=== PATIENT | female | born 1935 | race Caucasian/White ===

== ENCOUNTER 2017-08-06 14:34 | Observation (INO) | payer MEDICARE, BC ==
[~2017-08-06] VITALS: Ht 152.4 cm; Wt 68.2 kg
[~2017-08-06 14:34] MED LIST: CITRTAB7 PO; CLON0.5T PO; COUM2TAB PO; CYMB30CA PO; EXTR500C PO; MULTCAP2 PO; OMEP20TA39 PO; PRAV40TA PO
[2017-08-06 14:36] VITALS: BP 140/82; PULSE 101; RESP 18; TEMP 99.3; O2SAT 94
--- NOTE | 2017-08-06 15:30 | RADRPT ---
EXAM DATE/TIME: 08/06/2017 15:22 [facility] COMPARISON: CT BRAIN W/O CONTRAST, November 27, 2015, 7:51. INDICATIONS : Episode of confusion, visual disturbances. RADIATION DOSE: 34.66 CTDIvol (mGy) MEDICAL HISTORY : Endometrial cancer SURGICAL HISTORY : Hysterectomy. ENCOUNTER: Initial ACUITY: 1 day PAIN SCALE: 0/10 LOCATION: cranial TECHNIQUE: Multiple contiguous axial images were obtained of the head. Using automated exposure control and adj ustment of the mA and/or kV according to patient size, radiation dose was kept as low as reasonably a chievable to obtain optimal diagnostic quality images. DICOM format image data is available electro nically for review and comparison. FINDINGS: CEREBRUM: The ventricles are normal for age. No evidence of midline shift, mass lesion, hemorrhage or acute in farction. No extra-axial fluid collections are seen. POSTERIOR FOSSA: The cerebellum and brainstem are intact. The 4th ventricle is midline. The cerebellopontine angle i s unremarkable. EXTRACRANIAL: The visualized portion of the orbits is intact. SKULL: The calvaria is intact. No evidence of skull fracture. CONCLUSION: No acute intracranial abnormality. Abel Bajwa MD on August 06, 2017 at 15:26 Board Certified Radiologist. This report was verified electronically.
[2017-08-06 15:58] LABS: AUTOMATED NEUTROPHIL # 5.6 TH/MM3 (1.8-7.7); BASOPHIL # 0.1 TH/MM3 (0-0.2); BASOPHIL % 0.7 % (0.0-2.0); EOSINOPHIL # 0.1 TH/MM3 (0-0.4); EOSINOPHIL % 1.2 % (0.0-4.0); HEMATOCRIT 41.3 % (35.0-46.0); LYMPH % 16.2 % (9.0-44.0); LYMPHOCYTE # 1.3 TH/MM3 (1.0-4.8); MEAN CELL VOLUME 88.4 FL (80.0-100.0); MEAN PLATELET VOLUME 7.7 FL (7.0-11.0); MONO % 10.3 % (0.0-8.0); MONOCYTE # 0.8 TH/MM3 (0-0.9); NEUT % 71.6 % (16.0-70.0); PLATELET COUNT 229 TH/MM3 (150-450); RED BLOOD COUNT 4.67 MIL/MM3 (4.00-5.30); RED CELL DISTRIBUTION WIDTH 13.7 % (11.6-17.2); WHITE BLOOD COUNT 7.8 TH/MM3 (4.0-11.0)
[2017-08-06 16:05] LABS: INTERNATIONAL NORMALIZED RATIO 1.6 RATIO; PROTHROMBIN TIME - PATIENT 16.5 SEC (9.8-11.6)
[2017-08-06 16:13] LABS: ALBUMIN 3.5 GM/DL (3.4-5.0); ALT (GPT) 25 U/L (10-53); AST (GOT) 20 U/L (15-37); BICARBONATE 29.2 MEQ/L (21.0-32.0); BLOOD UREA NITROGEN 17 MG/DL (7-18); CALCIUM 8.6 MG/DL (8.5-10.1); CHLORIDE 104 MEQ/L (98-107); CREATININE 0.75 MG/DL (0.50-1.00); GLOMERULAR FILTRATION RATE 74 ML/MIN (>89); GLUCOSE,RANDOM 99 MG/DL (74-106); SODIUM (NA) 140 MEQ/L (136-145)
[2017-08-06 16:20] LABS: ALKALINE PHOSPHATASE 74 U/L (45-117); TOTAL BILIRUBIN ADULT 0.3 MG/DL (0.2-1.0); TROPONIN I LESS THAN 0.02 NG/ML (0.02-0.05)
[2017-08-06 16:41] LABS: BACTERIA, URINE OCC /hpf; BILIRUBIN, URINE NEG (NEG); BLOOD, URINE TRACE (NEG); GLUCOSE,URINE NEG (NEG); KETONE, URINE NEG (NEG); NITRITE,URINE NEG (NEG); RENAL EPITHELIAL CELLS 1 /hpf; SQUAMOUS EPITHELIAL CELL URINE 4 /hpf (0-5); URINE COLOR YELLOW (YELLW/STRAW); URINE LEUKOCYTE ESTERASE LARGE (NEG)
[2017-08-06] MEDS ORDERED: PRAV20TA2 PO (19:33)
[2017-08-06] MEDS ORDERED: CLON0.5T PO (19:33)
[2017-08-06] MEDS ORDERED: DULO1CAP2 PO (19:33)
[2017-08-06] MEDS ORDERED: ACET500L PO (19:33)
[2017-08-06] MEDS ORDERED: WARF4TAB51 PO (19:33)
[2017-08-06] MEDS ORDERED: MULT1TAB39 (19:33)
[2017-08-06] MEDS ORDERED: GADODIAMIDE PF 287 MG/ML 5 ML VIAL (for RAD MRI) IVCONTRAST ONE (20:30)
[2017-08-06 20:32] VITALS: BP 147/78; PULSE 78; RESP 18; O2SAT 99
--- NOTE | 2017-08-06 20:34 | PD ---
HPI Chief Complaint: Neuro Symptoms/ Deficits Time Seen by Provider: 19:22 Travel History International Travel<30 days: No Contact w/Intl Traveler<30days: No Traveled to known affect area: No History of Present Illness HPI 81-year-old female that presents to the ED for evaluation of possible TIA. Patient has a history of TIAs in the past. Per patient she last had one in 2015. Per patient she's noted as well as daughter that she's been having episodes of confusion as well as trouble speaking and coming up with words to come and go. She's had a couple of episodes after Christmases but they noted them more yesterday and today when she apparently tried to text her daughter and she couldn't finish the text as well as today when she was playing " solitary "on her phone and she couldn't figure out how to play it at that she plays this daily and at the same time could not speak with his daughter. She does report that on June the. She had an episode which she was reading a book and on one of her eye she could not read the letter and only part of it. Per patient she is compliant with her Coumadin which she is being prescribed to her doctor. She does have a history of high blood pressure. She denies any history of diabetes. No chest pain or shortness of breath. No urinary or bowel movement issues. She has allergies to quinine. She follows with Dr. Hernandez for neurology but she couldn't get to talk to him on the phone so they came here. 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 FROM DEHYDRATION OR ANXIETY ) Psychiatric: Yes (ANXIETY ) Reproductive: Yes (HX OF ENDOMETRIAL CANCER) Respiratory: No Radiation Therapy: Yes Thyroid Disease: No Tetanus Vaccination: > 5 Years Menopausal: No Tubal Ligation: Yes (1971) Past Surgical History Abdominal Surgery: Yes (CYST ON LIVER DRAINED; WHIT ) AICD: No Appendectomy: Yes (1971) Body Medical Devices: 1 SURGICAL WIRE SUTURE - JAW Cardiac Surgery: No Section: Yes (1971) Ear Surgery: No Endocrine Surgery: No Eye Surgery: Yes (CATARACT RIGHT 1996) Genitourinary Surgery: No Gynecologic Surgery: Yes (TOTAL HYSTERECTOMY; C SECTION ) Hysterectomy: Yes (2003) Joint Replacement: No Oral Surgery: Yes (JAW SURGERY-SEVERE UNDERBITE) Pacemaker: No Thoracic Surgery: No Other Surgery: Yes (JAW SURGERIES IN 1960S) Social History Alcohol Use: No Tobacco Use: No Substance Use: No Allergies-Medications (Allergen,Severity, Reaction): Coded Allergies: quinine (Unverified Allergy, Severe, 03/11/17) FACIAL BUTTERFLY RASH Reported Meds & Prescriptions Reported Meds & Active Scripts Active Reported Warfarin 2 Mg Tab 2 Mg PO DAILY Multiple Vitamin/Minerals (Multiple Vitamins W/ Minerals) 1 Tab Tab Clonazepam 0.5 Mg Tab 0.5 Mg PO HS Pravastatin 20 Mg Tab 20 Mg PO DAILY Duloxetine DR (Duloxetine HCl) 30 Mg Capdr 30 Mg PO DAILY Acetaminophen Extra Strength Liq (Acetaminophen) 500 Mg/15 Ml Soln 500 Mg PO Q4- 6H PRN Review of Systems Except as stated in HPI: all other systems reviewed are Neg Physical Exam Narrative GENERAL: SKIN: Warm and dry. HEAD: Atraumatic. Normocephalic. EYES: Pupils equal and round. No scleral icterus. No injection or drainage. ENT: No nasal bleeding or discharge. Mucous membranes pink and moist. Tongue is midline. No uvula deviation. NECK: Trachea midline. No JVD. CARDIOVASCULAR: Regular rate and rhythm. No murmurs, S3, S4. RESPIRATORY: No accessory muscle use. Clear to auscultation. Breath sounds equal bilaterally. GASTROINTESTINAL: Abdomen soft, non-tender, nondistended. Hepatic and splenic margins not palpable. MUSCULOSKELETAL: Extremities without clubbing, cyanosis, or edema. No obvious deformities. Full range of motion of the upper and lower extremities bilaterally. 2+ pulses bilaterally. Romberg is negative. pronator test is negative. NEUROLOGICAL: Awake and alert. No obvious cranial nerve deficits. Motor grossly within normal limits. Five out of 5 muscle strength in the arms and legs. Normal speech. PSYCHIATRIC: Appropriate mood and affect; insight and judgment normal. Data Data Last Documented VS Vital Signs Date Time Temp Pulse Resp B/P (MAP) Pulse Ox O2 Delivery O2 Flow Rate FiO2 08/06/17 19:21 96 Room Air 08/06/17 14:36 99.3 101 18 140/82 (101) Orders Orders Electrocardiogram (08/06/17 15:00) Prothrombin Time / Inr (Pt) (08/06/17 15:00) Act Partial Throm Time (Ptt) (08/06/17 15:00) Complete Blood Count With Diff (08/06/17 15:00) Comprehensive Metabolic Panel (08/06/17 15:00) Troponin I (08/06/17 15:00) Urinalysis - C+S If Indicated (08/06/17 15:00) Ct Brain W/O Iv Contrast(Rout) (08/06/17 15:00) Urine Culture (08/06/17 15:35) Admit Order (Ed Use Only) (08/06/17 20:28) Labs Laboratory Tests Test 08/06/17 15:35 White Blood Count 7.8 TH/MM3 Red Blood Count 4.67 MIL/MM3 Hemoglobin 14.0 GM/DL Hematocrit 41.3 % Mean Corpuscular Volume 88.4 FL Mean Corpuscular Hemoglobin 30.0 PG Mean Corpuscular Hemoglobin Concent 34.0 % Red Cell Distribution Width 13.7 % Platelet Count 229 TH/MM3 Mean Platelet Volume 7.7 FL Neutrophils (%) (Auto) 71.6 % Lymphocytes (%) (Auto) 16.2 % Monocytes (%) (Auto) 10.3 % Eosinophils (%) (Auto) 1.2 % Basophils (%) (Auto) 0.7 % Neutrophils # (Auto) 5.6 TH/MM3 Lymphocytes # (Auto) 1.3 TH/MM3 Monocytes # (Auto) 0.8 TH/MM3 Eosinophils # (Auto) 0.1 TH/MM3 Basophils # (Auto) 0.1 TH/MM3 CBC Comment DIFF FINAL Differential Comment Prothrombin Time 16.5 SEC Prothromb Time International Ratio 1.6 RATIO Activated Partial Thromboplast Time 30.6 SEC Urine Color YELLOW Urine Turbidity HAZY Urine pH 7.0 Urine Specific [place] 1.012 Urine Protein NEG mg/dL Urine Glucose (UA) NEG mg/dL Urine Ketones NEG mg/dL Urine Occult Blood TRACE Urine Nitrite NEG Urine Bilirubin NEG Urine Urobilinogen LESS THAN 2.0 MG/DL Urine Leukocyte Esterase LARGE Urine RBC 2 /hpf Urine WBC 27 /hpf Urine Squamous Epithelial Cells 4 /hpf Urine Renal Epithelial Cells 1 /hpf Urine Bacteria OCC /hpf Microscopic Urinalysis Comment CATH-CULTURE IND Blood Urea Nitrogen 17 MG/DL Creatinine 0.75 MG/DL Random Glucose 99 MG/DL Total Protein 7.0 GM/DL Albumin 3.5 GM/DL Calcium Level 8.6 MG/DL Alkaline Phosphatase 74 U/L Aspartate Amino Transf (AST/SGOT) 20 U/L Alanine Aminotransferase (ALT/SGPT) 25 U/L Total Bilirubin 0.3 MG/DL Sodium Level 140 MEQ/L Potassium Level 4.1 MEQ/L Chloride Level 104 MEQ/L Carbon Dioxide Level 29.2 MEQ/L Anion Gap 7 MEQ/L Estimat Glomerular Filtration Rate 74 ML/MIN Troponin I LESS THAN 0.02 NG/ML MDM Medical Decision Making Medical Screen Exam Complete: Yes Emergency Medical Condition: Yes Medical Record Reviewed: Yes Interpretation(s) CBC & BMP Diagram 08/06/17 15:35 Total Protein 7.0, Albumin 3.5, Calcium Level 8.6, Alkaline Phosphatase 74, Aspartate Amino Transf (AST/SGOT) 20, Alanine Aminotransferase (ALT/SGPT) 25, Total Bilirubin 0.[address] 08/06/17 1500 Signed Impressions: Service Date/Time: Sunday, August 06, 2017 15:22 - CONCLUSION: No acute intracranial abnormality. Abel Bajwa MD EKG shows sinus rhythm with no sign of acute ischemia or arrhythmia. UA showed leukocyte esterase and someone will cells and bacteria but no nitrites. Differential Diagnosis CVA versus TIA versus anxiety versus confusion versus normal exam Narrative Course 81-year-old female that presents to the ED for evaluation of possible TIA. Patient was properly examined and was found to have signs and symptoms consistent appears to be likely TIA. Labs and imaging were ordered. Labs and imaging were essentially unremarkable. Definite concerning that she's had multiple episodes of unexplained neurological deficits. Cannot completely rule out TIA. Patient has not had any workup for about 2 years. I do recommend admission for further evaluation of this as patient already takes anticoagulation and she continues to have the symptoms. Case discussed in my attending Dr. Magana who agrees the patient should be admitted. This was discussed with the patient and agrees to admission. Case was discussed with Dr. Esparza who agrees to admission. Diagnosis Primary Impression: TIA (transient ischemic attack) Qualified Codes: G45.9 - Transient cerebral ischemic attack, unspecified Admitting Information Admitting Physician Requests: Observation Kervin Garcia Aug 06, 2017 20:34
[2017-08-06 22:40] VITALS: BP 152/69; PULSE 72; RESP 18; TEMP 98; O2SAT 96
[2017-08-07] VITALS (10 sets, daily range): BP systolic 120–152; BP diastolic 60–72; PULSE 68–82; RESP 16–19; TEMP 96.4–98.1; O2SAT 94–96
[2017-08-07] MEDS ORDERED: SODIUM CHLORIDE 0.9% FLUSH 10 ML FLUSH IV FLUSH PRN (02:00)
[2017-08-07] MEDS ORDERED: GLUCAGON 1 MG/ML VIAL OTHER PRN (02:00)
[2017-08-07] MEDS ORDERED: DEXTROSE 50% IN WATER 50 ML VIAL(D50) IV PUSH PRN (02:00)
[2017-08-07] MEDS ORDERED: clonazePAM 0.5 MG TAB PO ONE (03:00)
--- NOTE | 2017-08-07 04:10 | HHI.HP ---
[facility] Service [facility] . Primary Care Physician Sundar Ramirez MD . Admission Diagnosis acute TIA . Diagnoses: (1) TIA (transient ischemic attack) Chief Complaint: Word finding difficulty, inability to play solitaire effectively Travel History International Travel<30 Days: No Contact w/Intl Traveler <30 Da: No Traveled to Known Affected Are: No History of Present Illness Ms. Vasquez is a very pleasant 81 year-old female with a history of seizure, TIA, endometrial cancer status post WHIT and radiation, osteoporosis with spontaneous pelvic fractures, and cataracts who presented to the emergency room on 08/06/2017 for evaluation of TIA symptoms. Head CT in the ER with no acute intracranial abnormality. The patient is seen in the CDU. 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 She went home and sat down to play solitaire and noted that she was having difficulty matching cards. She started to try to send text messages to her daughter and had difficulty spelling words and finishing her message. She has similar episode to this about 3 years ago with a TIA followed by a grand mal seizure. She sees Dr. Angel and takes clonazepam 0.5 mg daily at bedtime for seizure prevention along with restless legs syndrome. She's had no additional seizures since the one 3 years ago. She had a cardiology workup at that time that showed PAT. She states they were never able to find any atrial fibrillation but she was recommended to start Coumadin for anticoagulation. Upon reviewing Dr. 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 The patient denies any unilateral weakness, facial drooping, or headache. She denies any recent cough, cold, or flu symptoms. She denies any recent fevers or chills though she was trying to send her daughter a text message saying "I am trying to get warm" earlier on 08/06/2017. Her last visit with Dr. Angel was one year ago and her last visit with Dr. Saenz was 1 year ago also. She has new finding of right bundle branch block on 12-lead EKG done in the ED not noted on prior 12-lead EKGs. Review of Systems Except as stated in HPI: all other systems reviewed are Neg Past Family Social History Past Medical History Grand mal seizure TIA Endometrial cancer status post WHIT with node dissection and radiation treatment in 2003 Restless leg syndrome Osteoporosis with spontaneous pelvic fractures in 2005 Denies diabetes mellitus, hypertension, coronary artery disease, asthma, emphysema, liver problems such as hepatitis, kidney disease, DVT, PE, CVA, or thyroid problems. . Past Surgical History 1971 Total abdominal hysterectomy with node dissection 2003 Jaw surgery to reduce severe underbite with tendon ligation Cataract surgery BTL 1971 Drainage of liver cyst . Reported Medications Reported Meds & Active Scripts Active Reported Warfarin 2 Mg Tab 2 Mg PO DAILY Multiple Vitamin/Minerals (Multiple Vitamins W/ Minerals) 1 Tab Tab Clonazepam 0.5 Mg Tab 0.5 Mg PO HS Pravastatin 20 Mg Tab 20 Mg PO DAILY Duloxetine DR (Duloxetine HCl) 30 Mg Capdr 30 Mg PO DAILY Acetaminophen Extra Strength Liq (Acetaminophen) 500 Mg/15 Ml Soln 500 Mg PO Q4- 6H PRN . Allergies: Coded Allergies: quinine (Unverified Allergy, Severe, 03/11/17) FACIAL BUTTERFLY RASH Active Ordered Medications Last Impressions Head CT 08/06/17 1500 Signed Impressions: Service Date/Time: Sunday, August 06, 2017 15:22 - CONCLUSION: No acute intracranial abnormality. Abel Bajwa MD . Family History Mother had a stroke, diabetes mellitus, and chronic kidney disease Brother with cerebral hemorrhage and another brother with Crohn's disease . 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 . Physical Exam Vital Signs Vital Signs Date Time Temp Pulse Resp B/P (MAP) Pulse Ox O2 Delivery O2 Flow Rate FiO2 08/07/17 00:13 97.8 70 19 152/69 (96) 96 08/06/17 22:40 98.0 72 18 152/69 (96) 96 08/06/17 20:32 78 18 147/78 (101) 99 Room Air 08/06/17 19:21 96 Room Air 08/06/17 14:36 99.3 101 18 140/82 (101) 94 Room Air Physical Exam GENERAL: This is a very pleasant female patient, in no apparent distress. SKIN: No rashes, ecchymoses or lesions. Cool and dry. HEAD: Atraumatic. Normocephalic. EYES: No scleral icterus. No injection or drainage. ENT: Nose without bleeding, purulent drainage. NECK: Trachea midline. No JVD or lymphadenopathy. CARDIOVASCULAR: Regular rate and rhythm without murmurs, gallops, or rubs. RESPIRATORY: Clear to auscultation. Breath sounds equal bilaterally. No wheezes , rales, or rhonchi. GASTROINTESTINAL: Abdomen soft, non-tender, nondistended. No guarding. MUSCULOSKELETAL: Extremities without clubbing, cyanosis, or edema. No calf tenderness. Strength equal bilaterally. NEUROLOGICAL: Awake and alert. Motor and sensory grossly within normal limits. Normal speech. No focal neuro deficits ordered, CN II - XII grossly intact. . Laboratory Laboratory Tests Test 08/06/17 15:35 White Blood Count 7.8 Red Blood Count 4.67 Hemoglobin 14.0 Hematocrit 41.3 Mean Corpuscular Volume 88.4 Mean Corpuscular Hemoglobin 30.0 Mean Corpuscular Hemoglobin Concent 34.0 Red Cell Distribution Width 13.7 Platelet Count 229 Mean Platelet Volume 7.7 Neutrophils (%) (Auto) 71.6 Lymphocytes (%) (Auto) 16.2 Monocytes (%) (Auto) 10.3 Eosinophils (%) (Auto) 1.2 Basophils (%) (Auto) 0.7 Neutrophils # (Auto) 5.6 Lymphocytes # (Auto) 1.3 Monocytes # (Auto) 0.8 Eosinophils # (Auto) 0.1 Basophils # (Auto) 0.1 CBC Comment DIFF FINAL Differential Comment Prothrombin Time 16.5 Prothromb Time International Ratio 1.6 Activated Partial Thromboplast Time 30.6 Urine Color YELLOW Urine Turbidity HAZY Urine pH 7.0 Urine Specific [place] 1.012 Urine Protein NEG Urine Glucose (UA) NEG Urine Ketones NEG Urine Occult Blood TRACE Urine Nitrite NEG Urine Bilirubin NEG Urine Urobilinogen LESS THAN 2.0 Urine Leukocyte Esterase LARGE Urine RBC 2 Urine WBC 27 Urine Squamous Epithelial Cells 4 Urine Renal Epithelial Cells 1 Urine Bacteria OCC Microscopic Urinalysis Comment CATH-CULTURE IND Blood Urea Nitrogen 17 Creatinine 0.75 Random Glucose 99 Total Protein 7.0 Albumin 3.5 Calcium Level 8.6 Alkaline Phosphatase 74 Aspartate Amino Transf (AST/SGOT) 20 Alanine Aminotransferase (ALT/SGPT) 25 Total Bilirubin 0.3 Sodium Level 140 Potassium Level 4.1 Chloride Level 104 Carbon Dioxide Level 29.2 Anion Gap 7 Estimat Glomerular Filtration Rate 74 Troponin I LESS THAN 0.02 Date/Time Source Procedure Growth Status 08/06/17 15:35 Urine Catheterized Urine Urine Culture Pending Received Result Diagram: 08/06/17 1535 08/06/17 1535 Imaging Last Impressions Head CT 08/06/17 1500 Signed Impressions: Service Date/Time: Sunday, August 06, 2017 15:22 - CONCLUSION: No acute intracranial abnormality. Abel Bajwa MD . [place] VTE Risk Assessment Caprini VTE Risk Assessment: Mod/High Risk (score >= 2) Caprini Risk Assessment Model Point Value = 1 Point Value = 2 Point Value = 3 Point Value = 5 Age 41-60 Minor surgery BMI > 25 kg/m2 Swollen legs Varicose veins or History of unexplained or recurrent spontaneous Oral contraceptives or hormone replacement Sepsis (< 1 month) Serious lung disease, including pneumonia (< 1 month) Abnormal pulmonary function Acute myocardial infarction Congestive heart failure (< 1 month) History of inflammatory bowel disease Medical patient at bed rest Age 61-74 Arthroscopic surgery Major open surgery (> 45 min) Laparoscopic surgery (> 45 min) Malignancy Confined to bed (> 72 hours) Immobilizing plaster cast Central venous access Age >= 75 History of VTE Family history of VTE Factor V Leiden Prothrombin [id number] Lupus anticoagulant Anticardiolipin antibodies Elevated serum homocysteine Heparin-induced thrombocytopenia Other congenital or acquired thrombophilia Stroke (< 1 month) Elective arthroplasty Hip, pelvis, or leg fracture Acute spinal cord injury (< 1 month) Prophylaxis Regimen Total Risk Factor Score Risk Level Prophylaxis Regimen 0-1 Low Early ambulation 2 Moderate Order ONE of the following: *Sequential Compression Device (SCD) *Heparin 5000 units SQ BID 3-4 Higher Order ONE of the following medications: *Heparin 5000 units SQ TID *Enoxaparin/Lovenox 40 mg SQ daily (WT < 150 kg, CrCl > 30 mL/min) *Enoxaparin/Lovenox 30 mg SQ daily (WT < 150 kg, CrCl > 10-29 mL/min) *Enoxaparin/Lovenox 30 mg SQ BID (WT < 150 kg, CrCl > 30 mL/min) AND/OR *Sequential Compression Device (SCD) 5 or more Highest Order ONE of the following medications: *Heparin 5000 units SQ TID (Preferred with Epidurals) *Enoxaparin/Lovenox 40 mg SQ daily (WT < 150 kg, CrCl > 30 mL/min) *Enoxaparin/Lovenox 30 mg SQ daily (WT < 150 kg, CrCl > 10-29 mL/min) *Enoxaparin/Lovenox 30 mg SQ BID (WT < 150 kg, CrCl > 30 mL/min) AND *Sequential Compression Device (SCD) Assessment and Plan Problem List: (1) TIA (transient ischemic attack) ICD Code: G45.9 - Transient cerebral ischemic attack, unspecified Status: Acute (2) Right bundle branch block (RBBB) ICD Code: I45.10 - Unspecified right bundle-branch block (3) History of seizure ICD Code: Z87.898 - Personal history of other specified conditions Assessment and Plan Ms. Vasquez is a very pleasant 81 year-old female with a history of seizure, TIA, endometrial cancer status post WHIT and radiation, osteoporosis with spontaneous pelvic fractures, and cataracts who presented to the emergency room on 08/06/2017 for evaluation of TIA symptoms. Head CT in the ER with no acute intracranial abnormality. TIA suspected - Head CT with no acute intracranial abnormality - Patient with history of TIA on anticoagulation with Coumadin with INR 1.6 - Follows with Dr. 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 Saenz as an outpatient - will consult him DVT prophylaxis - continue Coumadin for now, follow PT/INR . Discussed Condition With Patient, patient's RN, and Dr. Esparza . Problem Qualifiers (1) TIA (transient ischemic attack): Qualified Codes: G45.9 - Transient cerebral ischemic attack, unspecified Gaye Alvarez Aug 07, 2017 03:59
[2017-08-07] MEDS: INSULIN ASPART SUPPLEMENTAL SCALE SQ SCH ×4 (08:00→21:00)
[2017-08-07 08:03] LABS: INTERNATIONAL NORMALIZED RATIO 1.6 RATIO; PROTHROMBIN TIME - PATIENT 16.3 SEC (9.8-11.6)
--- NOTE | 2017-08-07 09:11 | RADRPT ---
EXAM DATE/TIME: 08/07/2017 08:00 [facility] COMPARISON: US CAROTID ARTERIES, November 27, 2015, 9:45. EXTERNAL COMPARISON : [facility], MRA Carotids, June 27, 2014RAPA INDICATIONS : Cerebrovascular accident. MEDICAL HISTORY : Endometrial cancer. SURGICAL HISTORY : Hysterectomy. ENCOUNTER: Subsequent ACUITY: 1 day PAIN SCORE: 0/10 LOCATION: Bilateral neck PEAK SYSTOLIC VELOCITIES (cm/sec): ICA/CCA RATIO: Right: 1.2 Left: 1.1 ICA: Right: 82 Left: 112 CCA: Right: 67 Left: 106 ECA: Right: 68 Left: 122 VERTEBRAL: Right: 51 antegrade Left: 55 antegrade Elevated flow velocities and ICA/CCA ratios have been found to correlate with increased degrees of vessel stenosis, calculated as percentage of diameter relative to a normal segment of distal ICA/CCA FINDINGS: RIGHT CAROTID: No significant stenosis is visualized. Mild calcification is noted in the bulb. The waveforms are wit hin normal limits. LEFT CAROTID: No significant stenosis is visualized. The waveforms are within normal limits. Left common carotid a rtery is tortuous. VERTEBRAL ARTERIES: Antegrade flow is seen in both vertebral arteries. MISCELLANEOUS: None. CONCLUSION: Mild calcification with no evidence of stenosis. Gino Keen MD on August 07, 2017 at 9:08 Board Certified Radiologist. This report was verified electronically.
--- NOTE | 2017-08-07 09:34 | HHI.PR ---
Subjective Remarks Follow up for confusion, difficulty with word finding, possible TIA vs CVA. The patient reports feeling completely back to baseline today. She has been playing cards on electronic tablet without difficulty. She denies any further aphasia or speech difficulties. Denies any headache, lightheadedness, dizziness, blurred /double vision, or unilateral numbness/weakness. She ambulated this morning without difficulty. She wants to go home today. Of note, discussed patient's EKG finding of RBBB, patient believes she's has this for awhile. Objective Vitals Vital Signs Date Time Temp Pulse Resp B/P (MAP) Pulse Ox O2 Delivery O2 Flow Rate FiO2 08/07/17 07:39 96.4 68 16 144/68 (93) 95 08/07/17 05:10 76 08/07/17 04:30 98.0 72 18 128/65 (86) 96 08/07/17 00:13 97.8 70 19 152/69 (96) 96 08/06/17 22:40 98.0 72 18 152/69 (96) 96 08/06/17 20:32 78 18 147/78 (101) 99 Room Air 08/06/17 19:21 96 Room Air 08/06/17 14:36 99.3 101 18 140/82 (101) 94 Room Air Result Diagram: 08/06/17 1535 08/06/17 1535 Imaging Last Impressions Carotid Artery Ultrasound 08/07/17 0000 Signed Impressions: Service Date/Time: July 08:00 - CONCLUSION: Mild calcification with no evidence of stenosis. Gino Keen MD Head CT 08/06/17 1500 Signed Impressions: Service Date/Time: Sunday, August 06, 2017 15:22 - CONCLUSION: No acute intracranial abnormality. Abel Bajwa MD Objective Remarks GENERAL: Well-nourished, well-developed pleasant elderly female patient in NAD. SKIN: Warm and dry. No rash. HEENT: Normocephalic. Atraumatic.Pupils equal and round. Mucous membranes pink and moist. NECK: Supple. Trachea midline. CARDIOVASCULAR: Regular rate and rhythm. S1, S2 noted. No murmur appreciated. RESPIRATORY: No accessory muscle use. Clear to auscultation. Breath sounds equal bilaterally. GASTROINTESTINAL: Abdomen soft, non-tender, nondistended. Normoactive bowel sounds x4. MUSCULOSKELETAL: No obvious deformities. Extremities without clubbing, cyanosis , or edema. NEUROLOGICAL: Awake and alert. No obvious cranial nerve deficits. Motor grossly within normal limits. 5/5 muscle strength in bilateral upper and lower extremities. Normal speech. No facial droop/lid lag/tongue deviation. PSYCHIATRIC: Appropriate mood and affect; insight and judgment normal. Medications and IVs Current Medications Medications (Trade) Dose Ordered Sig/Mell Route Start Time Stop Time Status Last Admin (NS Flush) 2 ml BID IV FLUSH 08/07/17 09:00 08/07/17 10:04 (NS Flush) 2 ml UNSCH PRN IV FLUSH 08/07/17 02:00 (Aspirin) 325 mg DAILY PO 08/07/17 09:00 08/07/17 10:03 (NovoLOG SUPPLEMENTAL SCALE) 1 ACHS SQ 08/07/17 08:00 (D50w (Vial) Inj) 50 ml UNSCH PRN IV PUSH 08/07/17 02:00 (Glucagon Inj) 1 mg UNSCH PRN OTHER 08/07/17 02:00 (Cymbalta Dr) 30 mg DAILY PO 08/07/17 09:00 08/07/17 10:04 (Pravachol) 20 mg DAILY PO 08/07/17 09:00 08/07/17 10:04 (Coumadin Booklet) 1 ONCE ONCE .XX 08/07/17 16:00 08/07/17 16:01 (Coumadin) 6 mg DAILY@1600 PO 08/07/17 16:00 (Heparin Inj) 5,000 units Q12H SQ 08/07/17 10:00 08/07/17 10:03 A/P Problem List: (1) TIA (transient ischemic attack) ICD Code: G45.9 - Transient cerebral ischemic attack, unspecified Status: Acute (2) Right bundle branch block (RBBB) ICD Code: I45.10 - Unspecified right bundle-branch block (3) History of seizure ICD Code: Z87.898 - Personal history of other specified conditions Assessment and Plan 81 year-old female with a history of seizure, TIA, endometrial cancer s/p WHIT and radiation, osteoporosis with spontaneous pelvic fractures, and cataracts who presented to the ED on 08/06/2017 for evaluation of TIA symptoms. Head CT in the ER with no acute intracranial abnormality. Suspected TIA: rule out CVA. Head CT images reviewed with no acute findings. Patient with history of TIA on anticoagulation with Coumadin with subtherapeutic INR 1.6. - Consulted patient's neurologist Dr. Angel, seen by Dr. 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 Saenz as an outpatient - will consult him UTI: UA with large leuks, occ bacteria. May be contributing to above symptoms. - start on IV Rocephin - monitor urine culture DVT prophylaxis- continue Coumadin with sq Heparin Discharge Planning Discharge pending MRI/MRA, echo, EEG, and neurology consult. Attending Statement patient was seen and examined today. presented with confusional episode. work-up including MRI brain/ echo pending. neurology and cardiology following. rest of assessment and plan as noted above. Problem Qualifiers (1) TIA (transient ischemic attack): Qualified Codes: G45.9 - Transient cerebral ischemic attack, unspecified Aylin Castrejon PA-C Aug 07, 2017 09:34 Fam Palma MD Aug 07, 2017 12:52
[2017-08-07] MEDS: ASPIRIN 325 MG TAB PO SCH (10:03)
[2017-08-07] MEDS: HEPARIN SODIUM - SQ 10,000 UNITS/ML VIAL SQ SCH ×2 (10:03→23:48)
[2017-08-07] MEDS: SODIUM CHLORIDE 0.9% FLUSH 10 ML FLUSH IV FLUSH SCH ×2 (10:04→21:00)
[2017-08-07] MEDS: PRAVASTATIN SOD 20 MG TAB PO SCH (10:04)
[2017-08-07] MEDS: DULoxetine HCl DR 30 MG CAP PO SCH (10:04)
--- NOTE | 2017-08-07 10:18 | MB ---
cc: SEGUNDO DENTON M.D. DATE OF CONSULTATION: 08/07/2017 HISTORY OF PRESENT ILLNESS This is a 81-year-old right-handed woman with a history of hypercholesterolemia. She tells me she had a grand mal seizure about 4 years ago where the next thing she knew she was in the ambulance. She had been seen by Dr. Angel. She has currently been on Coumadin, followed by Dr. Ramirez, her primary care and with some history in 2003 of uterine cancer. She has a history of several episodes in the last 5 or 6 years where one time she had trouble writing a check and expressing herself and she was put on Plavix and then she was on Plavix and then in November [address] Arana because she had trouble getting her speech out for maybe less than a minute, it is hard to say how long. Nevertheless, yesterday she was feeling fine and evidently had gone to work and was home and was going to play [employer] and then could not figure out how to play it on the computer. She does have a history of some anxiety and panic attacks but did not feel nervous during this. No headache associated with that at that time. Although the chart says that she had several episodes around [place] of this year with trouble texting, we asked the patient and she denied anything recently around [place] of this past year. She has had no episode since November of 2015. REVIEW OF SYSTEMS She denies any headache, chest pain or palpitations, although she did have a mild headache the day before that. She denies any history of a hypertension, diabetes, no definite atrial fibrillation, CABG, stent, angioplasty, renal, hepatic or pulmonary disease, thyroid disease, lupus, ulcer. SOCIAL HISTORY Nonsmoker, nondrinker. Lives by herself. FAMILY HISTORY Negative for cancer or seizure. Positive for stroke in her brother. MEDICATION 1. Coumadin, she takes 3 mg a day, Friday, Friday and Friday, 4 mg all other days. 2. Klonopin 0.5 at bedtime. 3. Pravastatin. 4. Cymbalta 30 a day. 5. Tylenol. ALLERGIES QUININE. PHYSICAL EXAMINATION VITAL SIGNS: She is in sinus rhythm here, 140/78. NECK: There were no carotid bruits. HEART: Regular rhythm. I do not detect a murmur. NEURO: Pupils are equal. Visual baird are full. Extraocular movements intact without nystagmus. Face is symmetric with normal sensation. Tongue was midline. There is no drift. She had normal strength in upper and lower extremities bilaterally. DTRs are 2+ symmetric throughout except the left knee jerk is 3+ compared to the right. Toes are downgoing bilaterally. There is no ankle clonus. Tone is normal throughout. Pinprick is intact throughout. She is not ataxic on [id number]-rvly. Speech is fluent. She is not aphasic. She had normal repetition. Short-term memory is 3/3 at 2 minutes. LABORATORY DATA CBC is normal. RPR has been negative. Urine drug screen was negative in 2013. UA on this admission showed large amount of leukocyte esterase, 27 white cells. Basic metabolic profile is normal. LFTs are normal. Troponin negative. LDL cholesterol was normal in November of 2015. B12 was normal at that time also. Thyroid was 3.8 minimally elevated at that time the TSH. IMAGING STUDIES Carotid ultrasound was just done and is pending. CAT scan of the brain yesterday was negative. MRI of the brain done in November 2015 was read as normal. CTA of the [id number]-rk-[id number] was normal at that time. CTA of the neck showed tortuous left common carotid artery otherwise normal. She had an echocardiogram done in November of 2015 which was normal. Left atrial size was normal. She must have gone to a different hospital with her seizure as there is no EEGs ever done here. Review of the MRI films from November of 2015 shows minimal white matter changes bilaterally, otherwise intact. IMPRESSION Possibly a TIA. Will see what the MRI of the brain shows here. Will just check a [id number]-tx-Vpnddr and since her INR was low here at 1.6, she did not get any Coumadin last night. I would give her 6 mg of Coumadin today total dose. Get her INR back up to over 2.0. We will check an EEG and the MRI of the brain. Overall, I thought she looked normal neurologically here. Another possibility is these episodes could be small complex partial seizures. It does appear she may have a UTI that should be treated. MD SONYA Callaway/ADRIÁN Beard: 08/07/2017/8:42 AM /9:16 AM
[2017-08-07] MEDS ORDERED: PILL SPLITTER OTHER PRN (11:00)
--- NOTE | 2017-08-07 11:33 | PD.CONS ---
HPI Service Cardiology Physicians Consult Requested By ROBERT Hansen Reason for Consult New RBBB Primary Care Physician Sundar Ramirez MD History of Present Illness The patient is an 81 year old female known to our practice with a cardiac history of CVA and TIAs on coumadin and HLD. The patient presented to the hospital for an acute episode of confusion while playing solitaire on the computer. She denies associated symptoms of weakness, palpitations, vision changes or slurred speech. INR on admission was subtherapeutic at 1.6. On admission, she was noted to have a new RBBB on EKG compared to previous. This was identified on her last office visit EKG. Nuclear stress test was offered, however she declined. Today, she denies recent episode of CP, SOB or decreased tolerance to completing ADLs due to fatigue or cardiac symptoms. UA suggests UTI (Simona Parker) Review of Systems Consitutional: DENIES: Fatigue, Fever, Chills, Weight gain, Weight loss Eyes: DENIES: Amaurosis Fugax, Change in vision HEENT: DENIES: Lightheadedness, Change in hearing Respiratory: DENIES: See HPI, Cough, Snoring, Shortness of breath, Wheezing, Sputum production Cardiovascular: DENIES: See HPI, Chest pain, Palpitations, Syncope, Tachycardia Gastrointestinal: DENIES: Nausea, Vomiting, Change in bowel habits, Reflux, Bloody stools, Melena Genitourinary: DENIES: Urinary incontinence, Difficulty voiding Integumentary: DENIES: Rash Neurologic: COMPLAINS OF: Stroke symptoms, DENIES: Tingling or numbness, Poor Balance Musculoskeletal: DENIES: Joint pain, Muscle pain, Limited range of motion, Back pain Psychiatric: DENIES: Anxiety, Depression, Sleep disturbances Hematologic: DENIES: Bruising tendencies, Bleeding tendencies Endocrine: DENIES: Weight gain, Weight loss, Thyroid disease (Simona Parker ) Past Family Social History Allergies: Coded Allergies: quinine (Unverified Allergy, Severe, 03/11/17) FACIAL BUTTERFLY RASH Past Medical History TIA/CVA HLD Epilepsy Depression GERD Restless leg syndrome Vertebrobasilar artery syndrome Past Surgical History Csection 1972 Hysterectomy for endometrial cancer 2003 Reported Medications Reported Meds & Active Scripts Active Reported Warfarin 2 Mg Tab 2 Mg PO DAILY Multiple Vitamin/Minerals (Multiple Vitamins W/ Minerals) 1 Tab Tab Clonazepam 0.5 Mg Tab 0.5 Mg PO HS Pravastatin 20 Mg Tab 20 Mg PO DAILY Duloxetine DR (Duloxetine HCl) 30 Mg Capdr 30 Mg PO DAILY Acetaminophen Extra Strength Liq (Acetaminophen) 500 Mg/15 Ml Soln 500 Mg PO Q4- 6H PRN Active Ordered Medications Current Medications Medications (Trade) Dose Ordered Sig/Mell Route Start Time Stop Time Status Last Admin (NS Flush) 2 ml BID IV FLUSH 08/07/17 09:00 08/07/17 10:04 (NS Flush) 2 ml UNSCH PRN IV FLUSH 08/07/17 02:00 (Aspirin) 325 mg DAILY PO 08/07/17 09:00 08/07/17 10:03 (NovoLOG SUPPLEMENTAL SCALE) 1 ACHS SQ 08/07/17 08:00 (D50w (Vial) Inj) 50 ml UNSCH PRN IV PUSH 08/07/17 02:00 (Glucagon Inj) 1 mg UNSCH PRN OTHER 08/07/17 02:00 (Cymbalta Dr) 30 mg DAILY PO 08/07/17 09:00 08/07/17 10:04 (Pravachol) 20 mg DAILY PO 08/07/17 09:00 08/07/17 10:04 (Coumadin Booklet) 1 ONCE ONCE .XX 08/07/17 16:00 08/07/17 16:01 (Coumadin) 6 mg DAILY@1600 PO 08/07/17 16:00 (Heparin Inj) 5,000 units Q12H SQ 08/07/17 10:00 08/07/17 10:03 (KlonoPIN) 0.25 mg HS PO 08/07/17 21:00 (Pill Splitter) 1 ea UNSCH PRN OTHER 08/07/17 11:00 Family History Non contributory Social History no ETOH or smoking (Simona Parker) Physical Exam Vital Signs Vital Signs Date Time Temp Pulse Resp B/P (MAP) Pulse Ox O2 Delivery O2 Flow Rate FiO2 08/07/17 07:50 70 08/07/17 07:39 96.4 68 16 144/68 (93) 95 08/07/17 05:10 76 08/07/17 04:30 98.0 72 18 128/65 (86) 96 08/07/17 00:13 97.8 70 19 152/69 (96) 96 08/06/17 22:40 98.0 72 18 152/69 (96) 96 08/06/17 20:32 78 18 147/78 (101) 99 Room Air 08/06/17 19:21 96 Room Air 08/06/17 14:36 99.3 101 18 140/82 (101) 94 Room Air Laboratory Laboratory Tests Test 08/06/17 15:35 08/07/17 06:30 White Blood Count 7.8 Red Blood Count 4.67 Hemoglobin 14.0 Hematocrit 41.3 Mean Corpuscular Volume 88.4 Mean Corpuscular Hemoglobin 30.0 Mean Corpuscular Hemoglobin Concent 34.0 Red Cell Distribution Width 13.7 Platelet Count 229 Mean Platelet Volume 7.7 Neutrophils (%) (Auto) 71.6 Lymphocytes (%) (Auto) 16.2 Monocytes (%) (Auto) 10.3 Eosinophils (%) (Auto) 1.2 Basophils (%) (Auto) 0.7 Neutrophils # (Auto) 5.6 Lymphocytes # (Auto) 1.3 Monocytes # (Auto) 0.8 Eosinophils # (Auto) 0.1 Basophils # (Auto) 0.1 CBC Comment DIFF FINAL Differential Comment Prothrombin Time 16.5 16.3 Prothromb Time International Ratio 1.6 1.6 Activated Partial Thromboplast Time 30.6 Urine Color YELLOW Urine Turbidity HAZY Urine pH 7.0 Urine Specific [place] 1.012 Urine Protein NEG Urine Glucose (UA) NEG Urine Ketones NEG Urine Occult Blood TRACE Urine Nitrite NEG Urine Bilirubin NEG Urine Urobilinogen LESS THAN 2.0 Urine Leukocyte Esterase LARGE Urine RBC 2 Urine WBC 27 Urine Squamous Epithelial Cells 4 Urine Renal Epithelial Cells 1 Urine Bacteria OCC Microscopic Urinalysis Comment CATH-CULTURE IND Blood Urea Nitrogen 17 Creatinine 0.75 Random Glucose 99 Total Protein 7.0 Albumin 3.5 Calcium Level 8.6 Alkaline Phosphatase 74 Aspartate Amino Transf (AST/SGOT) 20 Alanine Aminotransferase (ALT/SGPT) 25 Total Bilirubin 0.3 Sodium Level 140 Potassium Level 4.1 Chloride Level 104 Carbon Dioxide Level 29.2 Anion Gap 7 Estimat Glomerular Filtration Rate 74 Troponin I LESS THAN 0.02 Date/Time Source Procedure Growth Status 08/06/17 15:35 Urine Catheterized Urine Urine Culture Pending Received (Simona Parker) Result Diagram: 08/06/17 1535 08/06/17 1535 Imaging GENERAL: Elderly female finishing EEG SKIN: Warm and dry. HEAD: Atraumatic. Normocephalic. EYES: Pupils equal and round. No scleral icterus. ENT: No nasal bleeding or discharge. NECK: Trachea midline. No JVD. CARDIOVASCULAR: Regular rate and rhythm. RESPIRATORY: No accessory muscle use.Breath sounds equal bilaterally. GASTROINTESTINAL: Abdomen soft, non-tender, nondistended. MUSCULOSKELETAL: Extremities without clubbing, cyanosis, or edema. . NEUROLOGICAL: Awake and alert. No obvious cranial nerve deficits. Normal speech. PSYCHIATRIC: Appropriate mood and affect; insight and judgment normal. (Simona Parker) Assessment and Plan Assessment and Plan RBBB Acute episode of confusion- TIA vs seizure vs UTI. No atrial fibrillation since admission on telemetry. Subtherapeutic anticoagulation HLD PLAN: The patient denies cardiac symptoms. We will follow up the patient in the office for further evaluation Dr Davison following from Neurology standpoint The patient was seen and evaluated by Dr Saenz who completed face to face encounter and physical exam and participated in evaluation and management. (Simona Parker) Assessment and Plan The exam, history, and the medical decision-making described in the above note were completed with the assistance of the mid-level provider. I reviewed and agree with the findings presented. I attest that I had a lxly-la-oddv encounter with the patient on the same day, and personally performed and documented my assessment and findings in the medical record. Confusion with known RBBB, will follow up cardiac status as o/p (Evans Saenz MD) Simona Parker Aug 07, 2017 11:33 Evans Saenz MD Aug 07, 2017 14:12
[2017-08-07 11:34] LABS: HEMOGLOBIN A1C 5.4 % (4.3-6.0)
[2017-08-07] MEDS ORDERED: cefTRIAXone INJ 1,000 MG in SODIUM CHLORIDE 0.9% INJ 100 ML IV SCH (13:00)
--- NOTE | 2017-08-07 13:43 | RADRPT ---
EXAM DATE/TIME: 08/07/2017 11:10 [facility] COMPARISON: CT BRAIN W/O CONTRAST, August 06, 2017, 15:22. INDICATIONS : Cerebrovascular accident. Confusion and visual disturbance. CONTRAST: 13 cc Omniscan (gadodiamide) IV MEDICAL HISTORY : Arthritis. Gastroesophageal reflux disease. endometrial cancer SURGICAL HISTORY : Hysterectomy. Appendectomy. jaw, cataract ENCOUNTER: Subsequent ACUITY: 2 day PAIN SCORE: 0/10 LOCATION: cranial TECHNIQUE: Multiplanar, multisequence MRI of the brain was performed both prior to and following the administrat ion of paramagnetic contrast. FINDINGS: CEREBRUM: The ventricles are normal for age. No evidence of midline shift, mass lesion, hemorrhage or acute in farction. No extraaxial fluid collections are seen. The pituitary gland and suprasellar cistern are normal in configuration. WHITE MATTER: On the flair weighted images and increased signal in the periventricular white matter and centrum quinton iovale. POSTERIOR FOSSA: The cerebellum and brainstem are intact. The 4th ventricle is midline. The cerebellopontine angle is unremarkable. The cerebellar tonsils are normal in position. DIFFUSION IMAGING: No focal areas of restricted diffusion are seen. No evidence of acute infarction. EXTRACRANIAL: The visualized portions of the orbits and paranasal sinuses are unremarkable. POST-CONTRAST: No abnormal areas of parenchymal or dural enhancement. No evidence of blood-brain barrier breakdown. CONCLUSION: 1. No acute hemorrhage, mass or infarction. 2. Mild atrophy and chronic small vessel ischemic change. Gino eKen MD on August 07, 2017 at 13:37 Board Certified Radiologist. This report was verified electronically.
--- NOTE | 2017-08-07 14:13 | RADRPT ---
EXAM DATE/TIME: 08/07/2017 11:10 [facility] COMPARISON: No previous studies available for comparison. INDICATIONS : Cerebrovascular accident. MEDICAL HISTORY : Arthritis. Gastroesophageal reflux disease. Endometrial cancer SURGICAL HISTORY : Hysterectomy. Appendectomy. jaw, cataract ENCOUNTER: Subsequent ACUITY: 2 day PAIN SCORE: 0/10 LOCATION: cranial Please note a normal MRA of the brain does not entirely exclude the possibility of a small aneurysm, nor the possibility of distal intracranial vessel disease. TECHNIQUE: 3D time of flight MRA was performed. Source images, multiplanar STS MIP, and 3D volume MIP reconstru ctions were reviewed. FINDINGS: Anterior circulation: Distal intracranial internal carotid arteries are patent with flow extending to the middle and anteri or cerebral arteries. There is no evidence for aneurysm, vessel truncation or stenosis, and no eviden ce for vascular malformation. Posterior circulation: Symmetric distal vertebral arteries with flow extending to basilar artery. 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 There is no evidence for aneurysm, vessel truncation or stenosis, and no evidence for vascular malformation. CONCLUSION: 1. Unremarkable MRA examination of the brain. Specifically, no evidence for large vessel occlusion or significant cerebral artery stenosis. Elbert Baker MD on August 07, 2017 at 13:07 Board Certified Radiologist. This report was verified electronically.
[2017-08-07 14:56] LABS: FREE T4 1.08 NG/DL (0.76-1.46)
[2017-08-07] MEDS ORDERED: WARFARIN SOD 2 MG TAB PO SCH (16:00)
[2017-08-07] MEDS: WARFARIN SOD 6 MG TAB PO SCH (17:15)
--- NOTE | 2017-08-07 20:30 | MG ---
cc: ORIANA UMAÑA MD Lab No: Date: 08/07/17 Age: Sex: F Race: DATE OF [address] Davison MEDICAL HISTORY Cataract of the right eye, osteoarthritis, depression, arthritis, back problems , anxiety, cancer, radiation, transient ischemic attack, GI bleed, gastroesophageal reflux disease, seizures admitted for possible TIA. The patient was having episodes of confusion, trouble speaking. MEDICATIONS Coumadin Cymbalta Temazepam DESCRIPTION Background activity is 8-9 Hz alpha located posteriorly, attenuates to eye- opening with posterior to anterior gradient bilateral and symmetrical. During the recording, there is eye blinking and movement artifact. Hyperventilation was omitted. Photic stimulation did not elicit a driving response. During the recording, there was left temporal electrode artifact. There were no electrographic seizures or epileptiform discharges noted. INTERPRETATION This is a normal awake EEG. The EEG is contaminated with muscle artifacts and eye movements artifact. There were no electrographic seizures or epileptiform discharges noted during the body. Clinical correlation is recommended. MD ELFEGO Sevilla/ /7:21 PM /8:08 PM MTDChirag
[2017-08-07] MEDS: clonazePAM 0.5 MG TAB PO SCH (22:00)
[2017-08-08] VITALS (11 sets, daily range): BP systolic 99–156; BP diastolic 52–72; PULSE 65–103; RESP 17–18; TEMP 97.2–97.9; O2SAT 92–96
--- NOTE | 2017-08-08 07:19 | HHI.PR ---
Objective Vital Signs Date Time Temp Pulse Resp B/P (MAP) Pulse Ox O2 Delivery O2 Flow Rate FiO2 08/08/17 04:35 97.8 75 18 133/65 (87) 95 08/08/17 00:10 97.9 78 18 99/52 (68) 93 08/07/17 20:19 98.0 78 18 122/62 (82) 94 08/07/17 16:51 126/60 (82) 122/60 (80) 127/62 (83) 08/07/17 16:00 97.9 77 16 144/69 (94) 95 08/07/17 12:12 98.1 81 16 124/72 (89) 95 120/69 (86) 144/65 (91) 08/07/17 12:09 82 08/07/17 07:50 70 08/07/17 07:39 96.4 68 16 144/68 (93) 95 I/O 08/07/17 08/07/17 08/07/17 08/08/17 08/08/17 08/08/17 06:59 14:59 22:59 06:59 14:59 22:59 Intake Total 300 ml Balance 300 ml Intake Oral 200 ml IV Total 100 ml # Voids 1 2 Result Diagram: 08/06/17 1535 08/06/17 1535 Objective Remarks nl speech Assessment and Plan Assessment and Plan imp mri neg us neg eeg neg esr nl sr inr pend can dc when inr>1.9 med team please dose her coumadin carefully with regard to what she was on at home Arthur Davison MD Aug 08, 2017 07:19
[2017-08-08 07:32] LABS: INTERNATIONAL NORMALIZED RATIO 1.6 RATIO; PROTHROMBIN TIME - PATIENT 15.7 SEC (9.8-11.6)
[2017-08-08 07:46] LABS: CHOLESTEROL/ HDL RATIO 2.23 RATIO; HDL CHOLESTEROL 63.9 MG/DL (40.0-60.0)
[2017-08-08] MEDS: INSULIN ASPART SUPPLEMENTAL SCALE SQ SCH ×4 (09:05→21:00)
[2017-08-08] MEDS: DULoxetine HCl DR 30 MG CAP PO SCH (10:41)
[2017-08-08] MEDS: ASPIRIN 325 MG TAB PO SCH (10:41)
[2017-08-08] MEDS: SODIUM CHLORIDE 0.9% FLUSH 10 ML FLUSH IV FLUSH SCH ×2 (10:41→21:00)
[2017-08-08] MEDS: PRAVASTATIN SOD 20 MG TAB PO SCH (10:41)
[2017-08-08] MEDS: HEPARIN SODIUM - SQ 10,000 UNITS/ML VIAL SQ SCH ×2 (10:42→21:27)
--- NOTE | 2017-08-08 11:35 | EKG ---
Date Performed: 08/06/2017 Time Performed: 17:53:52 PTAGE: 81 years EKG: Sinus rhythm RIGHT BUNDLE BRANCH BLOCK ABNORMAL ECG Compared to PREVIOUS TRACING , right bundle branch block is new. PREVIOUS TRACIN11/27/2015 07.35 DOCTOR: Francesca Poole Interpretating Date/Time 08/08/2017 11:35:15
--- NOTE | 2017-08-08 11:52 | HHI.PR ---
Subjective Remarks in no acute distress. no new complaints. INR trend noted. Objective Vitals Vital Signs Date Time Temp Pulse Resp B/P (MAP) Pulse Ox O2 Delivery O2 Flow Rate FiO2 08/08/17 08:38 97.6 70 18 150/72 (98) 96 08/08/17 04:35 97.8 75 18 133/65 (87) 95 08/08/17 00:10 97.9 78 18 99/52 (68) 93 08/07/17 20:19 98.0 78 18 122/62 (82) 94 08/07/17 16:51 126/60 (82) 122/60 (80) 127/62 (83) 08/07/17 16:00 97.9 77 16 144/69 (94) 95 08/07/17 12:12 98.1 81 16 124/72 (89) 95 120/69 (86) 144/65 (91) 08/07/17 12:09 82 I/O 08/07/17 08/07/17 08/07/17 08/08/17 08/08/17 08/08/17 07:00 15:00 23:00 07:00 15:00 23:00 Intake Total 300 ml Balance 300 ml Intake Oral 200 ml IV Total 100 ml # Voids 1 2 Result Diagram: 08/06/17 1535 08/06/17 1535 Imaging Last Impressions Brain MRI 08/07/17 0852 Signed Impressions: Service Date/Time: July 11:10 - CONCLUSION: 1. No acute hemorrhage, mass or infarction. 2. Mild atrophy and chronic small vessel ischemic change. Gino Keen MD Head Magnetic Resonance Angiography 08/07/17 0000 Signed Impressions: Service Date/Time: July 11:10 - CONCLUSION: 1. Unremarkable MRA examination of the brain. Specifically, no evidence for large vessel occlusion or significant cerebral artery stenosis. Elbert Baker MD Carotid Artery Ultrasound 08/07/17 0000 Signed Impressions: Service Date/Time: July 08:00 - CONCLUSION: Mild calcification with no evidence of stenosis. Gino Keen MD Head CT 08/06/17 1500 Signed Impressions: Service Date/Time: Wednesday, August 06, 2017 15:22 - CONCLUSION: No acute intracranial abnormality. Abel Bajwa MD Objective Remarks GENERAL: This is a well-nourished, well-developed patient, in no apparent distress. CARDIOVASCULAR: Regular rate and regular rhythm without murmurs, gallops, or rubs. RESPIRATORY: Clear to auscultation. Breath sounds equal bilaterally. No wheezes , rales, or rhonchi. GASTROINTESTINAL: Abdomen soft, non-tender, nondistended. Normal, active bowel sounds MUSCULOSKELETAL: Extremities without clubbing, cyanosis, or edema. NEURO: Alert & Oriented x4 to person, place, time, situation. Moves all ext x4 Medications and IVs Inpatient Medications Aspirin (Aspirin) 325 mg DAILY PO Last administered on 08/08/17at 10:41; Start 08/07/17 at 09:00 Ceftriaxone Sodium 1000 mg/ Sodium Chloride 100 ml @ 200 mls/hr Q24H IV Last administered on 08/07/17at 14:47; Start 08/07/17 at 13:00 Clonazepam (KlonoPIN) 0.25 mg HS PO Last administered on 08/07/17at 22:00; Start 08/07/17 at 21:00 Dextrose (D50w (Vial) Inj) 50 ml UNSCH PRN IV PUSH HYPOGLYCEMIA-SEE COMMENTS; Start 08/07/17 at 02:00 Duloxetine HCl (Cymbalta Dr) 30 mg DAILY PO Last administered on 08/08/17at 10: 41; Start 08/07/17 at 09:00 Glucagon (Glucagon Inj) 1 mg UNSCH PRN OTHER HYPOGLYCEMIA-SEE COMMENTS; Start 08/07/17 at 02:00 Heparin Sodium (Porcine) (Heparin Inj) 5,000 units Q12H SQ Last administered on 08/08/17at 10:42; Start 08/07/17 at 10:00 Insulin Aspart (NovoLOG SUPPLEMENTAL SCALE) 1 ACHS SQ ; Start 08/07/17 at 08:00 Miscellaneous (Pill Splitter) 1 ea UNSCH PRN OTHER SEE LABEL COMMENTS; Start at 11:00 Patient Medication Teaching (Coumadin Booklet) 1 ONCE ONCE .XX Last administered on 08/07/17at 17:18; Start 08/07/17 at 16:00; Stop 08/07/17 at 16:01 ; Status DC Pravastatin Sodium (Pravachol) 20 mg DAILY PO Last administered on 08/08/17at 10 :41; Start 08/07/17 at 09:00 Sodium Chloride (NS Flush) 2 ml UNSCH PRN IV FLUSH FLUSH AFTER USING IV ACCESS ; Start 08/07/17 at 02:00 Warfarin Sodium (Coumadin) 6 mg DAILY@1600 PO Last administered on 08/07/17at 17 :15; Start 08/07/17 at 16:00 A/P Problem List: (1) TIA (transient ischemic attack) ICD Code: G45.9 - Transient cerebral ischemic attack, unspecified Status: Acute (2) Right bundle branch block (RBBB) ICD Code: I45.10 - Unspecified right bundle-branch block (3) History of seizure ICD Code: Z87.898 - Personal history of other specified conditions Assessment and Plan A/P Suspected TIA - Consulted patient's neurologist Dr. Angel, seen by Dr. Davison, appreciate recommendations - Carotid U/S with mild calcifications, no stenosis - MRI/MRA brain with no acute abnormality. - EEG with no epileptiform activity. 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 abnormal UA- UC with gram-positive mixed carmen- will dc IV antibiotic. DVT prophylaxis- continue Coumadin with sq Heparin Discharge Planning hopefully tomorrow if INR > 1.9. Problem Qualifiers (1) TIA (transient ischemic attack): Qualified Codes: G45.9 - Transient cerebral ischemic attack, unspecified Fam Palma MD Aug 08, 2017 11:52
[2017-08-08 15:40] LABS: ANA SCREEN POS (NEG)
[2017-08-08] MEDS ORDERED: WARFARIN SOD 2 MG TAB PO ONE (16:00)
--- NOTE | 2017-08-08 16:31 | ECHRPT ---
Indication: CVA/TIA CONCLUSIONS Normal left ventricular size. Wall thickness is normal. The left ventricular systolic function is grossly normal on limited imaging. The left atrial size is [id number] dilated. Mild to moderate mitral valve regurgitation. Moderate mitral annular calcification. Aortic valve sclerosis is present. Mild aortic valve regurgitation. There is trace tricuspid valve regurgitation. BP: 144 / 68 HR: Rhythm: Sinus MEASUREMENTS (Male / Female) Normal Values Technical Quality:Fair 2D ECHO LV Diastolic Diameter PLAX 4.2 cm 4.2 - 5.9 / 3.9 - 5.3 cm LV Systolic Diameter PLAX 2.8 cm IVS Diastolic Thickness 0.9 cm 0.6 - 1.0 / 0.6 - 0.9 cm LVPW Diastolic Thickness 0.9 cm 0.6 - 1.0 / 0.6 - 0.9 cm LV Relative Wall Thickness 0.4 RV Internal Dim ED PLAX 2.8 cm LVOT Diameter 1.5 cm Aortic Root Diameter 3.3 cm LA Systolic Diameter LX 3.4 cm 3.0 - 4.0 / 2.7 - 3.8 cm M-MODE AV Cusp Separation MM 1.6 cm DOPPLER AV Peak Velocity 175.5 cm/s AV Peak Gradient 12.3 mmHg AV Mean Gradient 7.0 mmHg AV Velocity Time Integral 36.9 cm LVOT Peak Velocity 142.0 cm/s LVOT Peak Gradient 8.1 mmHg LVOT Velocity Time Integral 29.9 cm AV Area Cont Eq vti 1.4 cm AV Area Cont Eq pk 1.4 cm Mitral E Point Velocity 80.5 cm/s Mitral A Point Velocity 126.0 cm/s Mitral E to A Ratio 0.6 LV E' Lateral Velocity 7.1 cm/s Mitral E to LV E' Lateral Ratio 11.3 LV E' Septal Velocity 7.0 cm/s Mitral E to LV E' Septal Ratio 11.5 PV Peak Velocity 79.7 cm/s PV Peak Gradient 2.5 mmHg FINDINGS LEFT VENTRICLE Normal left ventricular size. Wall thickness is normal. The left ventricular systolic function is grossly normal on limited imaging. RIGHT VENTRICLE Normal right ventricular size and systolic function. LEFT ATRIUM The left atrial size is [id number] dilated. RIGHT ATRIUM The right atrial size is normal. ATRIAL SEPTUM Normal atrial septal thickness without atrial level shunting by limited color doppler interrogation. AORTA The aortic root and proximal ascending aorta are normal in size on limited imaging. MITRAL VALVE Mild to moderate mitral valve regurgitation. Moderate mitral annular calcification. AORTIC VALVE Aortic valve sclerosis is present. Mild aortic valve regurgitation. TRICUSPID VALVE There is trace tricuspid valve regurgitation. PULMONARY VALVE No pulmonary valve regurgitation or stenosis. VESSELS The inferior vena cava is normal in size. PERICARDIUM No pericardial effusion. Elias Noe MD, FACC (Electronically Signed) Final Date:08 August 2017 16:30
[2017-08-08] MEDS: WARFARIN SOD 6 MG TAB PO SCH (16:34)
[2017-08-08] MEDS: clonazePAM 0.5 MG TAB PO SCH (21:26)
[2017-08-09 02:56] VITALS: BP 123/67; PULSE 72; RESP 18; TEMP 98; O2SAT 94
[2017-08-09 07:00] VITALS: PULSE 68
[2017-08-09 07:14] LABS: PROTHROMBIN TIME - PATIENT 20.7 SEC (9.8-11.6)
[2017-08-09 07:33] VITALS: BP 127/62; PULSE 77; RESP 24; TEMP 98.4; O2SAT 100
[2017-08-09] MEDS: INSULIN ASPART SUPPLEMENTAL SCALE SQ SCH (08:00)
[2017-08-09] MEDS ORDERED: WARF4TAB51 PO (08:03)
--- NOTE | 2017-08-09 08:03 | HHI.DCPOC ---
Discharge Care Plan Diagnosis: (1) TIA (transient ischemic attack) Goals to Promote Your Health * To prevent worsening of your condition and complications * To maintain your health at the optimal level Directions to Meet Your Goals Take your medications as prescribed Follow your dietary instruction Follow activity as directed Keep your appointments as scheduled Take your immunizations and boosters as scheduled If your symptoms worsen call your PCP, if no PCP go to Urgent Care Center or Emergency Room Smoking is Dangerous to Your Health. Avoid second hand smoke Call the 24-hour hour crisis hotline for domestic abuse at Aylin Castrejon PA-C Aug 09, 2017 8:03 am
--- NOTE | 2017-08-09 08:32 | HHI.PR ---
Subjective Remarks in no acute distress. denies pain, dizziness, weakness. no new complaints. wants to go home today. Objective Vitals Vital Signs Date Time Temp Pulse Resp B/P (MAP) Pulse Ox O2 Delivery O2 Flow Rate FiO2 08/09/17 07:33 98.4 77 24 127/62 (83) 100 08/09/17 02:56 98.0 72 18 123/67 (85) 94 08/08/17 23:43 97.5 73 17 120/62 (81) 94 08/08/17 23:31 103 08/08/17 20:41 97.7 80 17 125/55 (78) 95 08/08/17 17:29 72 08/08/17 16:39 97.2 77 18 156/71 (99) 95 08/08/17 12:29 65 08/08/17 12:03 97.9 96 18 109/71 (84) 92 08/08/17 08:38 97.6 70 18 150/72 (98) 96 I/O 08/08/17 08/08/17 08/08/17 08/09/17 08/09/17 08/09/17 07:00 15:00 23:00 07:00 15:00 23:00 Intake Total 480 ml 200 ml 200 ml Balance 480 ml 200 ml 200 ml Intake Oral 480 ml 200 ml 200 ml # Voids 2 3 Result Diagram: 08/06/17 1535 08/06/17 1535 Imaging Last Impressions Brain MRI 08/07/17 0852 Signed Impressions: Service Date/Time: July 11:10 - CONCLUSION: 1. No acute hemorrhage, mass or infarction. 2. Mild atrophy and chronic small vessel ischemic change. Gino Keen MD Head Magnetic Resonance Angiography 08/07/17 0000 Signed Impressions: Service Date/Time: July 11:10 - CONCLUSION: 1. Unremarkable MRA examination of the brain. Specifically, no evidence for large vessel occlusion or significant cerebral artery stenosis. Elbert Baker MD Carotid Artery Ultrasound 08/07/17 0000 Signed Impressions: Service Date/Time: July 08:00 - CONCLUSION: Mild calcification with no evidence of stenosis. Gino Keen MD Head CT 08/06/17 1500 Signed Impressions: Service Date/Time: Sunday, August 06, 2017 15:22 - CONCLUSION: No acute intracranial abnormality. Abel Bajwa MD Objective Remarks GENERAL: This is a well-nourished, well-developed patient, in no apparent distress. CARDIOVASCULAR: Regular rate and regular rhythm without murmurs, gallops, or rubs. RESPIRATORY: Clear to auscultation. Breath sounds equal bilaterally. No wheezes , rales, or rhonchi. GASTROINTESTINAL: Abdomen soft, non-tender, nondistended. Normal, active bowel sounds MUSCULOSKELETAL: Extremities without clubbing, cyanosis, or edema. NEURO: Alert & Oriented x4 to person, place, time, situation. Moves all ext x4 Procedures none Medications and IVs Inpatient Medications Aspirin (Aspirin) 325 mg DAILY PO Last administered on 08/08/17at 10:41; Start 08/07/17 at 09:00 Ceftriaxone Sodium 1000 mg/ Sodium Chloride 100 ml @ 200 mls/hr Q24H IV Last administered on 08/07/17at 14:47; Start 08/07/17 at 13:00; Stop 08/08/17 at 11:59 ; Status DC Clonazepam (KlonoPIN) 0.25 mg HS PO Last administered on 08/08/17at 21:26; Start 08/07/17 at 21:00 Dextrose (D50w (Vial) Inj) 50 ml UNSCH PRN IV PUSH HYPOGLYCEMIA-SEE COMMENTS; Start 08/07/17 at 02:00 Duloxetine HCl (Cymbalta Dr) 30 mg DAILY PO Last administered on 08/08/17at 10: 41; Start 08/07/17 at 09:00 Glucagon (Glucagon Inj) 1 mg UNSCH PRN OTHER HYPOGLYCEMIA-SEE COMMENTS; Start 08/07/17 at 02:00 Heparin Sodium (Porcine) (Heparin Inj) 5,000 units Q12H SQ Last administered on 08/08/17at 21:27; Start 08/07/17 at 10:00 Insulin Aspart (NovoLOG SUPPLEMENTAL SCALE) 1 ACHS SQ ; Start 08/07/17 at 08:00 Miscellaneous (Pill Splitter) 1 ea UNSCH PRN OTHER SEE LABEL COMMENTS; Start at 11:00 Patient Medication Teaching (Coumadin Booklet) 1 ONCE ONCE .XX Last administered on 08/07/17at 17:18; Start 08/07/17 at 16:00; Stop 08/07/17 at 16:01 ; Status DC Pravastatin Sodium (Pravachol) 20 mg DAILY PO Last administered on 08/08/17at 10 :41; Start 08/07/17 at 09:00 Sodium Chloride (NS Flush) 2 ml UNSCH PRN IV FLUSH FLUSH AFTER USING IV ACCESS ; Start 08/07/17 at 02:00 Warfarin Sodium (Coumadin) 2 mg ONCE ONCE PO Last administered on 08/08/17at 16 :34; Start 08/08/17 at 16:00; Stop 08/08/17 at 16:01; Status DC A/P Problem List: (1) TIA (transient ischemic attack) ICD Code: G45.9 - Transient cerebral ischemic attack, unspecified Status: Acute (2) Right bundle branch block (RBBB) ICD Code: I45.10 - Unspecified right bundle-branch block (3) History of seizure ICD Code: Z87.898 - Personal history of other specified conditions Assessment and Plan A/P Suspected TIA - Consulted patient's neurologist Dr. Angel, seen by Dr. Davison, appreciate recommendations - Carotid U/S with mild calcifications, no stenosis - MRI/MRA brain with no acute abnormality. - EEG with no epileptiform activity. 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 abnormal UA- UC with gram-positive mixed carmen DVT prophylaxis- continue Coumadin with sq Heparin Discharge Planning dc home today. f/u; pcp,cardiology and neurology. Problem Qualifiers (1) TIA (transient ischemic attack): Qualified Codes: G45.9 - Transient cerebral ischemic attack, unspecified Fam Palma MD Aug 09, 2017 08:32
--- NOTE | 2017-08-09 08:35 | HHI.DS ---
Discharge Summary Admission Date Aug 06, 2017 at 20:29 Discharge Date: Aug 09, 2017 Admitting Diagnosis acute TIA . (1) TIA (transient ischemic attack) ICD Code: G45.9 - Transient cerebral ischemic attack, unspecified Diagnosis: Principal Status: Acute (2) Right bundle branch block (RBBB) ICD Code: I45.10 - Unspecified right bundle-branch block Diagnosis: Secondary (3) History of seizure ICD Code: Z87.898 - Personal history of other specified conditions Diagnosis: Secondary Procedures none Brief History - From Admission Ms. Vasquez is a very pleasant 81 year-old female with a history of seizure, TIA, endometrial cancer status post WHIT and radiation, osteoporosis with spontaneous pelvic fractures, and cataracts who presented to the emergency room on 08/06/2017 for evaluation of TIA symptoms. Head CT in the ER with no acute intracranial abnormality. The patient is seen in the CDU. 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 She went home and sat down to play [employer] and noted that she was having difficulty matching cards. She started to try to send text messages to her daughter and had difficulty spelling words and finishing her message. She has similar episode to this about 3 years ago with a TIA followed by a grand mal seizure. She sees Dr. Angel and takes clonazepam 0.5 mg daily at bedtime for seizure prevention along with restless legs syndrome. She's had no additional seizures since the one 3 years ago. She had a cardiology workup at that time that showed PAT. She states they were never able to find any atrial fibrillation but she was recommended to start Coumadin for anticoagulation. Upon reviewing Dr. 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 The patient denies any unilateral weakness, facial drooping, or headache. She denies any recent cough, cold, or flu symptoms. She denies any recent fevers or chills though she was trying to send her daughter a text message saying "I am trying to get warm" earlier on 08/06/2017. Her last visit with Dr. Angel was one year ago and her last visit with Dr. Saenz was 1 year ago also. She has new finding of right bundle branch block on 12-lead EKG done in the ED not noted on prior 12-lead EKGs. CBC/BMP: 08/06/17 1535 08/06/17 1535 Significant Findings Laboratory Tests Test 08/06/17 15:35 08/07/17 06:30 08/07/17 13:37 08/08/17 06:00 Neutrophils (%) (Auto) 71.6 % (16.0-70.0) Monocytes (%) (Auto) 10.3 % (0.0-8.0) Prothrombin Time 16.5 SEC (9.8-11.6) 16.3 SEC (9.8-11.6) 15.7 SEC (9.8-11.6) Activated Partial Thromboplast Time 30.6 SEC (24.3-30.1) Urine Turbidity HAZY (CLEAR) Urine Occult Blood TRACE (NEG) Urine Leukocyte Esterase LARGE (NEG) Urine WBC 27 /hpf (0-5) Urine Bacteria OCC /hpf (NONE) Estimat Glomerular Filtration Rate 74 ML/MIN (>89) Troponin I LESS THAN 0.02 NG/ML Anti-Nuclear Antibody Screen POS (NEG) HDL Cholesterol 63.9 MG/DL (40.0-60.0) Test 08/09/17 05:50 Prothrombin Time 20.7 SEC (9.8-11.6) Imaging Last Impressions Brain MRI 08/07/17 0852 Signed Impressions: Service Date/Time: July 11:10 - CONCLUSION: 1. No acute hemorrhage, mass or infarction. 2. Mild atrophy and chronic small vessel ischemic change. Gino Keen MD Head Magnetic Resonance Angiography 08/07/17 0000 Signed Impressions: Service Date/Time: July 11:10 - CONCLUSION: 1. Unremarkable MRA examination of the brain. Specifically, no evidence for large vessel occlusion or significant cerebral artery stenosis. Elbert Baker MD Carotid Artery Ultrasound 08/07/17 0000 Signed Impressions: Service Date/Time: July 08:00 - CONCLUSION: Mild calcification with no evidence of stenosis. Gino Keen MD Head CT 08/06/17 1500 Signed Impressions: Service Date/Time: Sunday, August 06, 2017 15:22 - CONCLUSION: No acute intracranial abnormality. Abel Bajwa MD PE at Discharge GENERAL: This is a well-nourished, well-developed patient, in no apparent distress. CARDIOVASCULAR: Regular rate and regular rhythm without murmurs, gallops, or rubs. RESPIRATORY: Clear to auscultation. Breath sounds equal bilaterally. No wheezes , rales, or rhonchi. GASTROINTESTINAL: Abdomen soft, non-tender, nondistended. Normal, active bowel sounds MUSCULOSKELETAL: Extremities without clubbing, cyanosis, or edema. NEURO: Alert & Oriented x4 to person, place, time, situation. Moves all ext x4 Hospital Course patient was admitted with possible TIA. imaging studies as noted above. patient was started back on her coumadin. she was seen and evaluated by cardiology and neurology. the course in the hospital was otherwise uneventful. she will be discharged home with f/u with her pcp, cardiology and neurology with PT/INR monitoring as outpatient. Pt Condition on Discharge: Stable Discharge Disposition: Discharge Home Discharge Time: <= 30 minutes Discharge Instructions DIET: Follow Instructions for: Heart Healthy Diet, Coumadin (Warfarin) Diet Speech Therapy-Diet Recommends: Regular Activities you can perform: Regular-No Restrictions Follow up Referrals: Cardiology - 1 Week with Evans Saenz MD Neurology - 1 Week with Maynor Angel MD PCP Follow-up - 1 Week with Sundar Ramirez MD Changed Medications: Warfarin (Warfarin) 2 Mg Tab 4 MG PO DAILY for Blood Clot Prevention, #30 TAB 0 Refills (Changed from: 2 MG) Continued Medications: Acetaminophen Liq (Acetaminophen Extra Strength Liq) 500 Mg/15 Ml Soln 500 MG PO Q4-6H PRN for PAIN SCALE 6 TO 10, ML 0 Refills Clonazepam (Clonazepam) 0.5 Mg Tab 0.5 MG PO HS, #60 TAB [address] (Duloxetine DR) 30 Mg Capdr 30 MG PO DAILY, #30 CAP 0 Refills Multiple Vitamins W/ Minerals (Multiple Vitamin/Minerals) 1 Tab Tab Pravastatin (Pravastatin) 20 Mg Tab 20 MG PO DAILY for Cholesterol Management, #30 TAB 0 Refills Fam Palma MD Aug 09, 2017 08:35
[2017-08-09] MEDS: PRAVASTATIN SOD 20 MG TAB PO SCH (08:39)
[2017-08-09] MEDS: ASPIRIN 325 MG TAB PO SCH (08:39)
[2017-08-09] MEDS: DULoxetine HCl DR 30 MG CAP PO SCH (08:39)
[2017-08-09] MEDS: SODIUM CHLORIDE 0.9% FLUSH 10 ML FLUSH IV FLUSH SCH (08:39)
[2017-08-09] MEDS: HEPARIN SODIUM - SQ 10,000 UNITS/ML VIAL SQ SCH (10:00)
[2017-08-11 15:24] LABS: ANA PATTERN DIFFUSE
== END 2017-08-09 17:13 | disposition home or self-care (01) ==
LOC: NEPE 14:34 → NEDA 20:29 → NEPGCP 22:25
PROVIDERS: ADMIT Hospitalist; ATTEND Hospitalist
DX: G45.9 Transient cerebral ischemic attack, unspecified (principal); I45.10 Unspecified right bundle-branch block; Z86.73 Personal history of transient ischemic attack (TIA), and cerebral infarction without residual deficits; M46.90 Unspecified inflammatory spondylopathy, site unspecified; F41.9 Anxiety disorder, unspecified; F32.9 Major depressive disorder, single episode, unspecified; R00.2 Palpitations; K21.9 Gastro-esophageal reflux disease without esophagitis; Z85.42 Personal history of malignant neoplasm of other parts of uterus; Z79.899 Other long term (current) drug therapy; M81.0 Age-related osteoporosis without current pathological fracture; R56.9 Unspecified convulsions; Z79.01 Long term (current) use of anticoagulants; E78.00 Pure hypercholesterolemia, unspecified; B96.89 Other specified bacterial agents as the cause of diseases classified elsewhere; R94.31 Abnormal electrocardiogram [ECG] [EKG]; N39.0 Urinary tract infection, site not specified
CPT/HCPCS: 70450; 70544; 70553; 80053; 80061; 81001; 82948; 83036; 84207; 84425; 84439; 84443; 84484; 85025; 85610; 85652; 85730; 86038; 86039; 87086; 92522; 93005; 93306; 93880; 95819; 96365; 96372; 97110; 97116; 97163; 97165; 99285; A9579; G0378; G8987; G8988; G8989; G8999; G9158; G9186; J0696; J1644

== ENCOUNTER 2017-08-24 11:36 | Emergency (ER) | payer OTHER, MEDICARE, BC ==
[~2017-08-24] VITALS: Ht 177.8 cm; Wt 69.0 kg
[~2017-08-24 11:36] MED LIST changes: +ACET500L PO; -CITRTAB7 PO; -COUM2TAB PO; -CYMB30CA PO; +DULO1CAP2 PO; -EXTR500C PO; +MULT1TAB39; -MULTCAP2 PO; -OMEP20TA39 PO; +PRAV20TA2 PO; -PRAV40TA PO; +WARF4TAB51 PO
[2017-08-24 12:30] VITALS: BP 143/70; PULSE 73; RESP 20; TEMP 98.3; O2SAT 97
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
== END 2017-08-24 13:32 | disposition home or self-care (01) ==
LOC: PHEFT 11:36
DX: S13.4XXA Sprain of ligaments of cervical spine, initial encounter (principal); S33.9XXA Sprain of unspecified parts of lumbar spine and pelvis, initial encounter; M47.9 Spondylosis, unspecified; F41.9 Anxiety disorder, unspecified; F32.9 Major depressive disorder, single episode, unspecified; V43.62XA Car passenger injured in collision with other type car in traffic accident, initial encounter; Z86.73 Personal history of transient ischemic attack (TIA), and cerebral infarction without residual deficits; Z79.01 Long term (current) use of anticoagulants
CPT/HCPCS: 99282